=== PATIENT | female | born 1980 | race Caucasian/White ===

== ENCOUNTER 2025-03-14 22:02 | Emergency (ER) | payer MEDICAID, SELFPAY ==
[2025-03-14] VITALS (7 sets, daily range): BP systolic 125–133; BP diastolic 70–87; PULSE 71–79; RESP 10–19; TEMP 36.8; O2SAT 95–97
--- NOTE | ~2025-03-14 | CT_ITS ---
EXAMINATION: CT abdomen pelvis w con DATE: 03/14/2025 23:39 INDICATION: Epigastric and right upper quadrant abdominal pain. Nausea and vomiting. TECHNIQUE: Computed tomography (CT) of the abdomen and pelvis was performed with 100 mL Omnipaque 350 intravenous contrast. Automated exposure control and iterative reconstruction technique were employed. The dose-length product was 1892.46 mGy-cm. COMPARISON: None. FINDINGS: The visualized portions of lung bases are clear without pneumonia or pleural effusion. The heart size is normal. No pericardial effusion. The liver, gallbladder, spleen, pancreas, and adrenal glands are normal. There is cortical thinning of the kidneys. There is a 9 mm cyst in left kidney. There are no dilated loops of bowel. The appendix is normal. There are no pathologically enlarged lymph nodes. There is no free intraperitoneal fluid. There is mild thoracic and lumbar spondylosis. IMPRESSION: 1. No etiology for the patient's symptoms. Reviewed, dictated and finalized at location E.
--- NOTE | 2025-03-14 22:13 | ECG_ITS ---
Test Date: 2025-03-14 22:19:11 Measurements Intervals [place] Rate: 74 P: 59 CO: 152 QRS: 48 QRSD: 87 T: 62 QT: 368 QTc: 410 Interpretive Statements SINUS RHYTHM NORMAL ECG No previous ECG available for comparison Electronically Signed On 03-15-2025 06:12:22 CDT by Tony Butler D.O.
[2025-03-14 22:31] LABS: BEDSIDEPREGUCG Negative (Negative)
[2025-03-14 22:36] LABS: Hematocrit 42.4 % (37.0-47.0); Hemoglobin 14.0 g/dL (12.0-15.0); Immature Granulocyte Percent A 0.1 % (0-0.5); Lymphocytes Absolute Auto 2.48 K/mm3 (0.9-3.2); Mean Corpuscular HGB Conc 33.0 g/dl (32-36); Mean Corpuscular Hemoglobin 29.2 pg (26-34); Mean Corpuscular Volume 88.5 fl (80-100); Nucleated Red Blood Cells Absolute Auto 0.000 K/mm3 (0.0-0.012); Nucleated Red Blood Cells Perc 0.0 % (0.0-0.2); Platelet Count Result 334 k/mm3 (150-375); Red Blood Count 4.79 M/mm3 (4.2-5.4); White Blood Count 8.6 K/mm3 (4.5-10.0)
--- OUTSIDE RECORDS SUMMARY | 2025-03-14 22:36 | XMS_ITS | Patient Health Record ---
Author Organization [facility] Address [address] [place] [id number] Support Name Relationship Address Phone Marta Gomez Emergency Contact [address] [place] [address] Melania Urban Guarantor Unknown Reason For Referral No Information Plan Of Treatment No Information Insurance Providers Payer Name Payer Address Payer Phone Subscriber Number Group Number Insured Name Patient Relationship to Insured Coverage Start Date Coverage End Date Registration Melania Urban Self - patient is the insured Dental Only (PFC) re-cert 2019 Melania Urban Self - patient is the insured
--- OUTSIDE RECORDS SUMMARY | 2025-03-14 22:36 | XMS_ITS | Clinical Summary ---
Author Organization [facility] Address [facility] [place] [address] Care Team Providers Care Button Inspector Name Role Phone None, Provider MD Primary Care Provider Unavaila ble Allergies No known active allergies Medications guaiFENesin ER (MUCINEX) 600 MG 12 hr tablet Take 2 tablets (1,200 mg total) by mouth 2 (two) times daily. 28 tablet 06/09/2023 Active albuterol sulfate HFA 108 (90 Base) MCG/ACT inhaler Inhale 2 puffs into the lungs every 6 (six) hours as needed for Wheezing. 1 g 06/09/2023 Active Social History Tobacco Use Types Packs/Day Years Used Date Smoking Tobacco: Every Day Cigarettes Smokeless Tobacco: Never Tobacco Cessation:Ready to Q uit: Not Asked; Counseling Given: Not Answered Alcohol Use Standard Drinks/Week Comments Never 0 (1 standard drink = 0.6 oz pur e alcohol) Estimated Date of Delivery Comme nts Yes 11/03/2023 Sex and Gender Information Value Date Recorded Sex Assigned at Not on file Legal Sex Female 8:52 AM REGIONAL FACILITIES MANAGER Gender Identity Not on file Sexual Orientation Not on file Last Filed Vital Signs Vital Sign Reading Time Taken Comments Blood Pressure 111/53 07/04/2023 9:00 AM REGIONAL FACILITIES MANAGER Pulse 104 07/04/2023 8:47 AM REGIONAL FACILITIES MANAGER Temperature 37.2 C (99 F) 07/04/2023 8:47 AM REGIONAL FACILITIES MANAGER Respiratory Rate 22 07/04/2023 8:47 AM REGIONAL FACILITIES MANAGER Oxygen Saturation 96% 07/04/2023 9:00 AM REGIONAL FACILITIES MANAGER Inhaled Oxygen Concentration - - Weight 112.5 kg (248 lb) 07/04/2023 6:09 AM REGIONAL FACILITIES MANAGER Height 172.7 cm (5' 8) 07/04/2023 6:09 AM REGIONAL FACILITIES MANAGER Body Mass Index 37.71 07/04/2023 6:09 AM REGIONAL FACILITIES MANAGER Plan of Treatment Health Maintenance Due Date Last Done Comments Cervical Cancer Screening Pa p Smear (Age 30 to 64) Every 3 Years 1980 Annual Physical 1983 Hepatitis C 1998 DTaP, Tdap and Td Vaccines ( 1 - Tdap) 1999 Hepatitis B Vaccines (1 of 3 - 19+ 3-dose series) 1999 Pneumococcal Vaccine: Pediat rics (0 to 5 Years) and At-Risk Patients (6 to 49 Years) (1 of 2 - PCV) 1999 HPV Vaccines (1 - 3-dose SCD M series) 2007 Cervical Cancer Screening Pa p with HPV Testing (Age 30 to 64) Every 5 Years 2010 Cervical Cancer Screening with HPV 2010 Mammogram Screening 2020 COVID-19 Vaccine ( - 2024-2 6 season) 2025 Influenza Adult (#1) 2025 RSV Immunization or 60+ Years (1 - 1-dose 75+ series) 2055 Hepatitis A Vaccines Aged Out No long er eligible based on patient's age to complete this topic Meningococcal B Vaccine Aged Out No l onger eligible based on patient's age to complete this topic Meningococcal Vaccine Aged Out No michael kita eligible based on patient's age to complete this topic RSV Immunizations Under 20 Months Aged Out No longer eligible based on patient's age to complete this topic Insurance [facility] MEDICAID Care Teams Button Inspector Relationship Specialty Start Date End Date None, Provider, MD PCP - General UNKNOWN PHYSICIAN SPECIALTY 06/09/23
--- OUTSIDE RECORDS SUMMARY | 2025-03-14 22:36 | XMS_ITS | Clinical Summary ---
Author Organization [facility] Address [address] [facility] [place] [address] Care Team Providers Care Unit Aide Tech Name Role Phone Unavailable Primary Care Provider Unavailabl e Source Comments [facility],non-owned Affiliates and Associated Physician Practices is amultiple site organization consisting of ambulatory clinics and hospital sitesin [place], [place], [place] and [place]. This disclosure is being madepursuant to the Care Everywhere program and may not contain all information available regarding this patient. Last updated 18.[facility] Allergies No known active allergies Medications * Be aware that medications may not be up to date on this document. Alwaysverify current medications with the patient. albuterol HFA (Proventil; Ventolin; Proair) 108 (90 Base) MCG/ACT inhaler Inhale 2 (two) puffs by mouth every 6 hours as needed for Wheezing, Shortness of Breath or Cough Active fluticasone-quan meterol (Advair/Wixela) 100-50 MCG/ACT inhaler Inhale 1 (one) puff by mouth 2 times daily Active Vit-DSS-Fe Fum-FA ( vitamin with iron) tablet Take 1 (one) tablet by mouth once daily Active budesonide-form oterol (Symbicort) 160-4.5 MCG/ACT inhaler Inhale 2 (two) puffs by mouth 2 times daily 10.2 g 4 Active predniSONE (Deltasone) 10 MG tablet Take 1 (one) tablet by mouth once daily Take on 07/12/2023 1 tablet 4 Active benzonatate (Tessalon) 100 MG capsule Take 1 (one) capsule by mouth 3 times daily as needed for Cough 30 capsule 4 Active guaiFENesin ER 12hr (Mucinex) 600 MG tablet Take 1 (one) tablet by mouth every 12 hours as needed for Cough 30 tablet 4 Active saline nasal spray (Eddystone; Baby [place]) 0.65 % nasal spray [place] 1 (one) spray into each nostril every 1 hour as needed for Dry Nose 30 mL 4 Active Benzocaine-Ment hol (throat lozenge) Take 1 (one) lozenge by mouth every 2 hours as needed for Sore Throat 19 lozenge 4 Active Active Problems Problem Noted Date Diagnosed Date Influenza 07/04/2023 Acute hypoxic respiratory failure 07/04/2023 Tobacco abuse 07/04/2023 07/04/2023 Resolved Problems Problem Noted Date Diagnosed Date Resolved Date Asthma with acute exacerbation 07/04/2023 07/18/2023 Social History Tobacco Use Types Packs/Day Years Used Date Smoking Tobacco: Former Cigarettes Q uit: 06/20/2023 Smokeless Tobacco: Never Tobacco Cessation:Counseling Given: Not Answered AUDIT-C Answer Date Recorded Q1: How often do you have a drink containing alcohol? Never 07/04/2023 Q2: How many drinks containi ng alcohol do you have on a typical day when you are drinking? Patient does not drink Q3: How often do you have si x or more drinks on one occasion? Never 07/04/2023 Overall Financial Resource Strain (CARDIA) Answe r Date Recorded How hard is it for you to pa y for the very basics like food, housing, medical care, and heating? Not very hard 07/04/2023 [facility] of Occupat ional Health - Occupational Stress Questionnaire Answer Date Recorded Do you feel stress - tense, restless, nervous, or anxious, or unable to sleep at night because your mind is troubled all the time - these days? Not at all 07/04/2023 Hunger Vital Sign Answer Date Recorded Within the past 12 months, y ou worried that your food would run out before you got the money to buy more. Never true 07/04/19 24 Within the past 12 months, t he food you bought just didn't last and you didn't have money to get more. Never true 07/04/2023 PRAPARE - Transportation Answer Date Re corded In the past 12 months, has l ack of transportation kept you from medical appointments or from getting medications? No 06/16 In the past 12 months, has l ack of transportation kept you from meetings, work, or from getting things needed for daily living? No 07/04/2023 Housing Stability Vital Sign Answer Mark e Recorded In the last 12 months, was t here a time when you were not able to pay the mortgage or rent on time? No 07/04/2023 In the last 12 months, how many places have you lived? 2 07/04/2023 In the last 12 months, was t here a time when you did not have a steady place to sleep or slept in a fci (including now)? No 07/04/2023 Comments No Sex and Gender Information Value Date Recorded Sex Assigned at Not on file Legal Sex Female 8:36 AM DRAWING IN MACHINE TENDER Gender Identity Not on file Sexual Orientation Not on file Last Filed Vital Signs Vital Sign Reading Time Taken Comments Blood Pressure 114/52 07/11/2023 8:30 AM DRAWING IN MACHINE TENDER Pulse 80 07/10/2023 7:51 AM DRAWING IN MACHINE TENDER Temperature 36.8 C (98.2 F) 07/11/2023 8:30 AM DRAWING IN MACHINE TENDER Respiratory Rate 20 07/11/2023 8:30 AM DRAWING IN MACHINE TENDER Oxygen Saturation 98% 07/11/2023 10:00 AM DRAWING IN MACHINE TENDER Inhaled Oxygen Concentration 24% 07/08/2023 9 :20 AM DRAWING IN MACHINE TENDER Weight 113.4 kg (250 lb) 07/07/2023 9:22 AM DRAWING IN MACHINE TENDER Height 172.7 cm (5' 8) 07/07/2023 9:22 AM DRAWING IN MACHINE TENDER Body Mass Index 38.01 07/07/2023 9:22 AM DRAWING IN MACHINE TENDER Plan of Treatment Health Maintenance Due Date Last Done Comments LIPID TESTING 1980 MAMMOGRAM 1980 DTAP/TDAP/TD VACCINES (1 - Tdap) 1999 HEPATITIS B VACCINE (1 of 3 - 19+ 3-dose series) 1999 PAP SMEAR 2001 HPV VACCINE (1 - 3-dose SCDM series) 2007 DEPRESSION SCREENING 05/16/2024 COVID-19 VACCINE ( - 2023-2 5 season) 2025 INFLUENZA VACCINE (#1) 2025 ZOSTER VACCINE (1 of 2) 2030 HEPATITIS C SCREENING Completed 07/04/2023 HIV SCREENING Completed 07/04/2023 HIB VACCINE Aged Out No longer eligi ble based on patient's age to complete this topic MENINGOCOCCAL (Group B) VACC INE SHARED DECISION-MAKING Aged Out No longer eligibl e based on patient's age to complete this topic MENINGOCOCCAL GROUPS A/C/Y/W VACCINE Aged Out No longer eligible b ased on patient's age to complete this topic PNEUMOCOCCAL VACCINE Aged Out No long er eligible based on patient's age to complete this topic Procedures Procedure Name Priority Date/Time Associated Diagnosis Comments HEPATITIS C ANTIBODY Routine 07/04/2023 11:45 AM DRAWING IN MACHINE TENDER HIV-1 HIV-2 ANTIBODY + HIV P24 AG PANEL Routine 07/04/2023 11:45 AM DRAWING IN MACHINE TENDER from Last 3 Months or Most Recently Relevant to Health Maintenance Results * HIV-1 HIV-2 ANTIBODY + HIV P24 AG PANEL (07/04/2023 11:45 AM DRAWING IN MACHINE TENDER) HIV1/2 Ab + P24 Ag Non Reactive Non Reactive 07/04/2023 1:01 PM DRAWING IN MACHINE TENDER [facility] Blood BLOOD SPECIMEN / Unknown Lab Venipuncture / Unknown 07/04/2023 11:45 AM DRAWING IN MACHINE TENDER 07/04/2023 12:07 PM DRAWING IN MACHINE TENDER Narrative [facility] - 07/04/2023 1:01 PM DRAWING IN MACHINE TENDER No Laboratory evidence of HIV infection. Rosalio Cazares MD LAB - CHEMISTRY ORDERABLES Fin al Result [facility] [address] [place] [address] * HEPATITIS C ANTIBODY (07/04/2023 11:45 AM DRAWING IN MACHINE TENDER) HCV Antibody Screen Non Reactive Non Reactive 07/04/2023 1:03 PM DRAWING IN MACHINE TENDER [facility] Blood BLOOD SPECIMEN / Unknown Lab Venipuncture / Unknown 07/04/2023 11:45 AM DRAWING IN MACHINE TENDER 07/04/2023 12:07 PM DRAWING IN MACHINE TENDER Narrative [facility] - 07/04/2023 1:03 PM DRAWING IN MACHINE TENDER Non Reactive - Antibodies to Hepatitis C virus (HCV) were not detected, result does not exclude early acute HCV infection. us Rosalio Cazares MD LAB - CHEMISTRY ORDERABLES Fin al Result [facility] [address] [place] [address] from Last 3 Months or Most Recently Relevant to Health Maintenance Insurance MEDICAID - OUT OF STATE Advance Directives * Full Code (Latest Code Status on File) Date Activated Date Inactivated Comments 07/04/2023 10:52 AM 07/11/2023 2:48 PM
[2025-03-14 22:39] LABS: Add Urine Microscopic? YES; Appearance Urine Cloudy (Clear); Glucose Urine UA Negative (Negative); Leukocyte Esterase Ur Trace LEU/UL (Negative); Nitrate Urine Negative (Negative); Non Pathogenic Casts 0-2; Specific Grav Ur 1.025 (1.001-1.035)
[2025-03-14 22:54] LABS: Alanine Aminotransferase 76 U/L (6-35); Albumin Level 4.2 g/dL (3.5-5.1); Alkaline Phosphatase 117 U/L (38-126); Anion Gap 5 mmol/L (4-12); Aspartate Amino Transferase 72 U/L (14-36); Bilirubin,Total 0.7 mg/dL (0.2-1.3); Blood Urea Nitrogen 9 mg/dL (7-17); Calcium 9.2 mg/dL (8.4-10.2); Carbon Dioxide 29 mmol/L (22-30); Chloride 101 mmol/L (98-107); Estimated CRCL calculation 114 ml/min; Estimated Glomerular Filt Rate > 60; Glucose 82 mg/dL (65-110); Lipase 72 U/L (23-300); Potassium 4.2 mmol/L (3.4-5.0); Sodium 135 mmol/L (137-145); Total Protein 7.6 g/dL (6.3-8.2)
[2025-03-14] MEDS: SODIUM CHLORIDE 0.9% IV 1,000 ML 999 ML IV CONT (23:05)
[2025-03-14] MEDS: MORPHINE SULFATE (*CRX) 4 MG/ML INJ IV PUSH (23:06)
[2025-03-14] MEDS: ONDANSETRON INJ 4 MG/2 ML VIAL IV PUSH (23:06)
[2025-03-14] MEDS: PANTOPRAZOLE SODIUM IV 40 MG VIAL IV PUSH (23:06)
--- NOTE | 2025-03-14 23:55 | ED_ITS ---
HPI - Abdominal Pain General Chief Complaint: Abdominal Pain Stated Complaint: Abd pain, vomiting since Tuesday Time Seen by Provider: 03/14/25 22:17 Source: patient Mode of arrival: ambulatory Limitations: no limitations History of Present Illness HPI narrative: Patient is a 44-year-old female who presents the ED with report of epigastric/right upper quadrant pain. Patient reports having pain in her upper abdomen since Tuesday, associated with N/V. Reports pain is worse with eating, drinking and she will began vomiting. Denies history of similar pain. Denies history of gallbladder issues, pancreatitis, GERD, PUD. Reports increased belching with rotten egg smell. Denies fevers, diarrhea, constipation, rectal bleeding, melena. Related Data Allergies Allergy/AdvReac Type Severity Reaction Status Date / Time No Known Allergies Allergy Verified 03/14/25 22:17 Review of Systems 2 Review of Systems: All systems reviewed & are unremarkable except as noted in HPI. All systems reviewed & are unremarkable except as noted in HPI and below Exam 2 Narrative: GENERAL: Mildly uncomfortable appearing, obese with BMI of 41.9, non-toxic, in no acute distress. HEAD: Normocephalic, atraumatic. RESPIRATORY: Airway patent, respirations nonlabored. Clear to auscultation bilaterally, no rales, rhonchi, wheezing. CARDIOVASCULAR: Regular rate and rhythm without murmurs, rubs, or gallops. ABDOMINAL: Soft, TTP in epigastric region and RUQ, no rebound, nondistended. Normoactive BS. MUSCULOSKELETAL: Moves all extremities. No gross deformities. SKIN: Warm, dry, normal color. NEURO: A&O X3. Speech clear. Cranial nerves II-XII grossly intact. Steady gait. No ataxic movements. PSYCHIATRIC: Appropriate mood and affect. Normal interaction. Course Vital Signs Vital signs: Vital Signs Temperature 98.2 F 03/14/25 22:14 Pulse Rate 79 03/14/25 22:14 Respiratory Rate 19 03/14/25 22:14 Blood Pressure 133/87 03/14/25 22:14 Pulse Oximetry 96 03/14/25 22:14 Oxygen Delivery Room Air 03/14/25 22:14 Temperature 98.2 F 03/14/25 22:14 Pulse Rate 69 03/15/25 00:40 Respiratory Rate 21 H 03/15/25 00:40 Blood Pressure 115/56 L 03/15/25 00:40 Pulse Oximetry 96 03/15/25 00:40 Oxygen Delivery Room Air 03/14/25 22:14 MDM - Abdominal Pain MDM Narrative Medical decision making narrative: Patient presented to ED with several day history of upper abdominal pain, nausea, vomiting. Vital signs are stable upon arrival. Patient is afebrile here. Mildly uncomfortable appearing. Cbc without leukocytosis or anemia. CMP is unremarkable. Stable kidney function. AST and ALT is slightly elevated into the 70s. Patient does report she has been told her liver enzymes are elevated in the past. Total bilirubin, alk-phos, and lipase within normal range. UA without evidence of infection. EKG with normal sinus rhythm, no concerning ST changes. Trop negative. CT abd/pelvis obtained and without acute findings. No concerning etiology. Normal gallbladder. Discussed possibility of biliary colic, PUD, gastritis. Discussed continued management of such. Recommended low-fat diet. Will start patient on Protonix. Also given prescription for Zofran. Recommended follow-up with PCP for further evaluation. Given strict return precautions. She agrees with plan, feels comfortable going home, is feeling improved with supportive therapy. Discharged in stable condition. Patient was discharged during down time hours 03/15. See additional paper documentation Medical Records Attestation: I reviewed the patient's medical records. Lab Data Attestation: I reviewed the patient's lab results. 03/14/25 22:29 03/14/25 22:29 Labs: Lab Results 03/14/25 Range/Units 22:29 WBC 8.6 (4.5-10.0) K/mm3 RBC 4.79 (4.2-5.4) M/mm3 Hgb 14.0 (12.0-15.0) g/dL Hct 42.4 (37.0-47.0) % MCV 88.5 (80-100) fl MCH 29.2 (26-34) pg MCHC 33.0 (32-36) g/dl RDW 12.9 (11.5-14.5) % Plt Count 334 (150-375) k/mm3 MPV 9.6 (7.4-10.4) fl Immature Gran % (Auto) 0.1 (0-0.5) % Neut % (Auto) 59.3 (45.5-73.1) % Lymph % (Auto) 29.0 (18.3-44.2) % [place] % (Auto) 7.8 (2.6-8.5) % Eos % (Auto) 3.3 (0-4.4) % Baso % (Auto) 0.5 (0.2-1.2) % Lymph # (Auto) 2.48 (0.9-3.2) K/mm3 [place] # (Auto) 0.7 H (0.1-0.6) K/mm3 Eos # (Auto) 0.3 (0-0.3) K/mm3 Baso # (Auto) 0.0 (0.0-0.1) K/mm3 Abs Immat Gran (auto) 0.01 (0.00-0.031) K/mm3 Absolute Neuts (auto) 5.1 (1.3-6.7) K/mm3 Absolute Nucleated RBC 0.000 (0.0-0.012) K/mm3 Nucleated RBC % 0.0 (0.0-0.2) % Sodium 135 L (137-145) mmol/L Potassium 4.2 (3.4-5.0) mmol/L Chloride 101 (98-107) mmol/L Carbon Dioxide 29 (22-30) mmol/L Anion Gap 5 (4-12) mmol/L BUN 9 (7-17) mg/dL Creatinine 0.76 (0.7-1.0) mg/dL Estim Creat Clear Calc 114 ml/min Estimated GFR > 60 (59 - ) Glucose 82 (65-110) mg/dL Calcium 9.2 (8.4-10.2) mg/dL Total Bilirubin 0.7 (0.2-1.3) mg/dL AST 72 H (14-36) U/L ALT 76 H (6-35) U/L Alkaline Phosphatase 117 (38-126) U/L Troponin I < 0.012 (0.000-0.034) ng/mL Total Protein 7.6 (6.3-8.2) g/dL Albumin 4.2 (3.5-5.1) g/dL Lipase 72 (23-300) U/L Urine Color Dark yellow (Yellow) Urine Appearance Cloudy H (Clear) Urine pH 5.5 (5.0-9.0) Ur Specific [place] 1.025 (1.001-1.035) Urine Protein Negative (Negative) mg/dL Urine Glucose (UA) Negative (Negative) mg/dL Urine Ketones Trace H (Negative) mg/dL Ur Blood (Man) Trace (Negative) Urine Nitrate Negative (Negative) Urine Bilirubin Negative (Negative) Urine Urobilinogen 1.0 (<2.0) mg/dL Leukocyte Esterase Rfl Trace H (Negative) TANISHA/UL Urine RBC 0-2 (0-2) /hpf Urine WBC 0-5 (0-3) /hpf Ur Squamous Epith Cells Moderate (Few) /hpf Urine Bacteria 1+ H /hpf Urine Casts 0-2 POC Urine HCG, Qual Negative (Negative) Imaging Data Attestation: I personally reviewed and interpreted this imaging study as follows: Radiologist's impression: ITS Impressions Abdomen/Pelvis CT 03/15/25 07:08 IMPRESSION: 1. No etiology for the patient's symptoms. ECG Data EKG #1: Attestation: I personally reviewed and interpreted this ECG as follows: ECG completion date: 03/14/25 ECG completion time: 22:19 normal rate (74), sinus rhythm and no ST changes Discharge Plan Discharge Clinical Impression: Epigastric abdominal pain, Nausea and vomiting Patient Disposition: Home Condition: Improved Instructions: Antibiotic Form Patient Language: Thai Follow-up/Referrals: PHYSICIAN,[employer] SALES REP [Primary Care Provider, Internal Medicine]
[2025-03-15 00:08] VITALS: O2SAT 98
[2025-03-15 00:15] VITALS: BP 105/74; PULSE 73; RESP 17; O2SAT 94
[2025-03-15 00:16] VITALS: PULSE 69; RESP 14; O2SAT 96
[2025-03-15 00:30] VITALS: PULSE 70; RESP 17; O2SAT 96
[2025-03-15 00:40] VITALS: BP 115/56; PULSE 69; RESP 21; O2SAT 96
[2025-03-15 00:47] LABS: Troponin I < 0.012 ng/mL (0.000-0.034)
== END 2025-03-15 03:35 | disposition home or self-care (01) ==
LOC: ANHED 22:34
PROVIDERS: Student in an Organized Health Care Education/Training Program; Emergency Provider Physician Assistant
DX: R10.13 Epigastric pain (principal)
CPT/HCPCS: 36415; 74177; 80053; 81001; 81025; 83690; 84484; 85025; 93005; 96361; 96374; 96375; 99284; J2270; J2405; J2470; J7030; Q9967